=== PATIENT | female | born 1955 | race Caucasian/White ===

== ENCOUNTER → 2025-09-29 | Outpatient (CLI) | payer MEDICARE ==
--- NOTE | 2025-09-30 01:15 | HMCIMG ---
EXAM: MR Right Lower Extremity without IV contrast, Knee. CLINICAL HISTORY: M25.561 Pain in right knee. TECHNIQUE: Multisequence, multiplanar magnetic resonance images of the right knee obtained without intravenous contrast. Series acquired: 3 - AX T2 - TR: 4724.0 - TE: 98.3 - ET: 21.0 - Thk: 4.0 4 - AX T1 - TR: 687.0 - TE: 16.3 - ET: 4.0 - Thk: 4.0 5 - AX 2D MERGE - TR: 900.0 - TE: 14.9 - ET: 4.0 - Thk: 4.0 6 - COR PD - TR: 2425.0 - TE: 17.1 - ET: 9.0 - Thk: 3.0 7 - COR PD FS - TR: 2725.0 - TE: 17.1 - ET: 8.0 - Thk: 3.0 8 - COR 2D MERGE - TR: 981.0 - TE: 15.3 - ET: 4.0 - Thk: 3.1 9 - SAG PD - TR: 2365.0 - TE: 15.0 - ET: 8.0 - Thk: 3.0 10 - SAG T2 - TR: 4234.0 - TE: 105.9 - ET: 17.0 - Thk: 3.0 CONTRAST: None. COMPARISON: None provided. FINDINGS: LIGAMENTS: ANTERIOR CRUCIATE: The anterior cruciate ligament is intact with normal course and signal. POSTERIOR CRUCIATE: The posterior cruciate ligament is intact with preserved morphology and normal signal. LATERAL COLLATERAL: The lateral collateral ligament complex demonstrates thickening and mildly increased intrasubstance signal near its femoral attachment, consistent with sprain and a low-grade partial-thickness tear, without complete fiber discontinuity or retraction. MEDIAL COLLATERAL: The medial collateral ligament is intact with normal thickness and low signal; no tear is identified. TENDONS: QUADRICEPS: The quadriceps tendon is intact with normal contour and signal. PATELLAR: The patellar tendon is intact without tendinosis, tear, or enthesopathic change. LATERAL GASTROCNEMIUS: The lateral head of the gastrocnemius tendon is intact. MEDIAL GASTROCNEMIUS: The medial head of the gastrocnemius tendon is intact. ILIOTIBIAL BAND: The iliotibial band is intact with normal thickness and signal. POPLITEUS: The popliteus tendon and musculotendinous junction are intact. MENISCI: MEDIAL MENISCUS: There is degenerative meniscal tearing with a horizontal cleavage component involving the anterior horn, body, and posterior horn of the medial meniscus, extending to the articular surface. No displaced meniscal fragment or bucket-handle configuration is identified. LATERAL MENISCUS: There is degenerative meniscal tear involving the lateral meniscus with horizontal cleavage component, without displaced fragment or meniscal extrusion of more than minimal degree. CARTILAGE AND JOINT SPACES: There are mild femorotibial osteoarthritic changes with mild chondral thinning and surface irregularity, without focal full-thickness cartilage defect or large osteochondral lesion. The patellofemoral cartilage is preserved without focal high-grade chondral loss. Joint spaces are relatively maintained. BONES: No acute fracture, osteonecrosis, or aggressive osseous lesion is identified. Bone marrow signal is within normal limits, without focal marrow edema to suggest acute trabecular injury. MUSCLES AND SOFT TISSUES: Periarticular muscles demonstrate normal bulk and signal without strain or tear. Prepatellar subcutaneous soft tissue edema is present anterior to the patella and patellar tendon. No focal soft tissue mass is seen. FLUID AND BURSAE: There is minimal joint effusion. A small popliteal (Monet) cyst is present, measuring approximately 3.0 ??? 1.0 cm, without evidence of rupture or significant surrounding inflammation. No sizable additional bursitis is demonstrated. RETINACULA AND EXTENSOR MECHANISM: The medial and lateral patellar retinacula are intact. The extensor mechanism is otherwise unremarkable. ALIGNMENT: Overall alignment of the knee is within normal limits on this non???weight- bearing study. No patellar subluxation or abnormal tilt is evident. IMPRESSION: * Degenerative meniscal tearing with horizontal cleavage component involving the anterior horn, body, and posterior horn of the medial meniscus, and degenerative horizontal cleavage tear of the lateral meniscus, without displaced fragment. * Sprain with low-grade partial-thickness tear of the lateral collateral ligament near its femoral attachment, without complete rupture. 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 1.0 cm), and prepatellar subcutaneous soft tissue edema. /[place]
== END | disposition home or self-care (01) ==
LOC: RAH 10:57
PROVIDERS: ATTEND Nurse Practitioner Family
DX: S83.421A Sprain of lateral collateral ligament of right knee, initial encounter (principal); S83.241A Other tear of medial meniscus, current injury, right knee, initial encounter; S83.281A Other tear of lateral meniscus, current injury, right knee, initial encounter; M17.11 Unilateral primary osteoarthritis, right knee; M71.21 Synovial cyst of popliteal space [Baker], right knee; M25.561 Pain in right knee; R26.2 Difficulty in walking, not elsewhere classified; X58.XXXA Exposure to other specified factors, initial encounter; Y93.89 Activity, other specified; Y92.89 Other specified places as the place of occurrence of the external cause; Y99.8 Other external cause status
CPT/HCPCS: 73721